=== PATIENT | male | born 1940 | race Caucasian/White ===

== ENCOUNTER 2018-06-28 14:43 | Emergency (ER) | payer OTHER, SELFPAY ==
[2018-06-28 14:44] VITALS: BP 120/81; PULSE 59; PULSE 60; RESP 14; RESP 18; TEMP 36.6; O2SAT 96; O2SAT 97; BMI 25.9
[2018-06-28 14:51] LABS: Bedside Glucose 114 mg/dL (70-110)
--- NOTE | 2018-06-28 15:15 | EKG12_ITS ---
Test Reason : DIZZINESS Blood Pressure : / mmHG Vent. Rate : 057 BPM Atrial Rate : 057 BPM P-R Int : 166 ms QRS Dur : 088 ms QT Int : 442 ms P-R-T Axes : 033 010 041 degrees QTc Int : 430 ms Sinus bradycardia Nonspecific ST abnormality Abnormal ECG Confirmed by TERRENCE BARFIELD, YOVANA ([id number]), material expeditor LILIYA PEDRO ([id number]) on 07/03/2018 9:10:25 AM Referred By: COSME Confirmed By:YOVANA OCAMPO MD
--- NOTE | 2018-06-28 15:22 | ED.DCSUM_ITS ---
History of Present Illness Chief Complaint: Dizziness Detail of Chief Complaint: lightheaded Informant: Patient, [employer] Consultant Onset: Today Context: Gradual Onset Timing: Intermittent - one episode today, Lasts - 20 min or so Quality: lightheadedness Location: head Current Severity: gone Maximum Severity: Moderate Worsened by: standing Relieved by: sitting, and felt better after BM, EMS oral glucose, and drinking water. Associated Symptoms: none except feeling thirsty. no palpitations, cp, sob, n/v, headache. Narrative: Patient states has had this happen multiple times in the past. Has never passed out or lost consciousness. 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 He is on no medication for that yet. He does not recall EMS checking his blood sugar but they gave him oral glucose and after that and having a bowel movement, he felt better and now feels fine. States he was doing a lot of walking around today. No chest discomfort or other thoracic symptoms. Prior similar symptoms: Yes Recent Illness/Hospitalization: No - Past Medical History (1) CAD (coronary artery disease) Status: Chronic (2) HTN (hypertension) Status: Chronic Past Medical History - Allergies and Home Meds Allergies/Adverse Reactions: Allergies No Known Allergies Allergy (Verified 03/02/17 13:34) Primary Care Physician: [place] [Primary Care Provider] - Surgical History: coronary bypass surgery Smoking Status: Current every day smoker Alcohol: None Review of Systems General: Denies: Chills, Fever, Sweats Eyes: Denies: Visual changes - bilaterally, Diplopia ENT: Denies: Bilateral ear pain, Rhinorrhea, Sore throat Cardiovascular: Denies: Chest pain, Palpitations Respiratory: Denies: Dyspnea, Cough, Dyspnea on exertion Gastrointestinal: Denies: Abdominal pain, Nausea, Vomiting, Diarrhea, Melena, Hematochezia Genitourinary: Denies: Dysuria, Hematuria, Frequency Musculoskeletal: Denies: Back pain, Swelling, Extremity Pain Skin: Denies: Rash, Abscess Neurological: Denies: Headache, Weakness, Numbness Endocrine: Denies: Polyuria, Polydipsia Allergy: Denies: Swelling of the mouth, Swelling of the tongue Physical Exam Vital Signs/Narrative: Vital Signs Temp Pulse Resp BP Pulse Ox 06/28/18 14:44 97.8 F 60 14 120/81 H 97 Inital Vital Signs reviewed: Yes General: Well nourished, Well developed, - - well-appearing, nad Head: Normocephalic, Atraumatic Eyes: Perrl, EOMI ENT: Moist mucous membranes, No rhinorrhea Neck: Supple, Nontender. Negative for: No JVD Cardiovascular: Regular rate, Regular rhythm, No murmurs, Normal S1, Normal S2 Respiratory: No distress, CTA bilaterally, Chest nontender Abdomen: Soft, Nontender, Nondistended, Normal bowel sounds Back: Nontender, Normal Inspection. Negative for: CVA tenderness Extremities: Nontender, No edema Skin: Normal color, No rash Neurological: Alert, Oriented x3, Cranial nerves II-XII grossly intact, Normal Strength, Normal Sensation Psychological: Normal affect Diagnostic/Tx/Re-eval Laboratory Results 06/28/18 06/28/18 06/28/18 14:47 14:52 14:52 WBC 8.5 RBC 4.51 L Hgb 13.7 Hct 42.3 MCV 93.8 MCH 30.4 MCHC 32.4 RDW 13.3 RDW Differential 45.3 H Plt Count 225 MPV 12.2 H Immature Gran % (Auto) 0.200 Neut % (Auto) 69.9 Lymph % (Auto) 22.4 Graves % (Auto) 5.2 Eos % (Auto) 2.1 Baso % (Auto) 0.2 Absolute Neuts (auto) 5.9 Absolute Lymphs (auto) 1.90 Total Counted Not Reportable Sodium 139 Potassium 4.2 Chloride 108 H Carbon Dioxide 24.0 Anion Gap 7 BUN 19 H Creatinine 1.35 H Estim Creat Clear Calc 45.82 Est GFR (MDRD) Af Amer 66 Est GFR (MDRD) Non-Af 54 L BUN/Creatinine Ratio 14.1 Glucose 131 H Calcium 9.0 Troponin I 0.022 Urine Color Urine Clarity Urine pH Ur Specific [place] Urine Protein Urine Glucose (UA) Urine Ketones Urine Occult Blood Urine Nitrite Urine Bilirubin Urine Urobilinogen Ur Leukocyte Esterase Urine RBC Urine WBC Ur Squamous Epith Cells Urine Bacteria Hyaline Casts Urine Mucus POC Glucose 114 H 06/28/18 17:01 WBC RBC Hgb Hct MCV MCH MCHC RDW RDW Differential Plt Count MPV Immature Gran % (Auto) Neut % (Auto) Lymph % (Auto) [place] % (Auto) Eos % (Auto) Baso % (Auto) Absolute Neuts (auto) Absolute Lymphs (auto) Total Counted Sodium Potassium Chloride Carbon Dioxide Anion Gap BUN Creatinine Estim Creat Clear Calc Est GFR (MDRD) Af Amer Est GFR (MDRD) Non-Af BUN/Creatinine Ratio Glucose Calcium Troponin I Urine Color Yellow Urine Clarity Clear Urine pH 6.0 Ur Specific [place] 1.015 Urine Protein 15 H Urine Glucose (UA) Normal Urine Ketones 5 H Urine Occult Blood 10 H Urine Nitrite Negative Urine Bilirubin Negative Urine Urobilinogen Normal Ur Leukocyte Esterase 25 H Urine RBC 0 SEEN Urine WBC 0-5 SEEN Ur Squamous Epith Cells 0 SEEN Urine Bacteria 1+ Hyaline Casts 10-25 SEEN Urine Mucus 3+ POC Glucose - Rhythm Strip Rhythm Strip: Sinus Rhythm Rate: 57 Ectopy: None - EKG Initial EKG Interpretation: Sinus Rhythm, No Acute Injury Pattern, Non-Specific ST Changes - diffusely - Medical Decision Making Orthostatics were borderline with regards to his heart rate but not positive. He was given some oral fluids, he was ambulatory throughout the ED without any symptoms or hypoxia. His labs are unremarkable, his EKG is nonspecific and unremarkable, I think he is stable to go home. The EMS glucometer was not working properly, so they gave him glucose and all anyway. He also had a bowel movement shortly thereafter and follow-up better. Differential includes mild dehydration from all the walking he was doing today, as well as vasovagal lightheadedness. Encouraged to follow-up with his doctor. ED Disposition - Plan for ED Patient: Disposition: Home or Assisted Living Chief Complaint: Dizziness Diagnosis: Lightheadedness Instructions: ED Dizziness UKO Referrals: [facility] [Primary Care Provider] - 2 Days
[2018-06-28 15:30] LABS: Absolute Neutrophil Count 5.9 X10^3/uL (2.0-7.7); Basophil# 0.02 X10^3/uL; Basophil% 0.2 % (0-1); Eosinophil# 0.18 X10^3/uL; Eosinophils% 2.1 % (0-5); Hematocrit 42.3 % (40-54); Hemoglobin 13.7 g/dl (13.0-16.5); Lymphocyte % 22.4 % (19-41); Mean Corp Hgb Conc 32.4 g/gl (32-36); Mean Corpuscular Hgb 30.4 pg (27.0-32.0); Mean Corpuscular Volume 93.8 fL (80-94); Mean Platelet Vol. 12.2 fl (6.2-12.0); Monocyte# 0.44 X10^3/uL; Monocyte% 5.2 % (0-10); Neutrophil # 5.91 X10^3/uL (2.7-7.7); Neutrophil % 69.9 % (47-70); Platelet Count 225 K/mm3 (150-450); RBC Distribution Width CV 13.3 % (11.6-14.6); RBC Distribution Width SD 45.3 fl (35.1-43.9); Red Blood Count 4.51 M/mm3 (4.6-6.2); White Blood Count 8.5 K/mm3 (4.4-11.0)
[2018-06-28 15:31] LABS: POSITIVE COUNT NO; POSITIVE DIFFERENTIAL NO; POSITIVE MORPHOLOGY NO
[2018-06-28 15:43] LABS: Anion Gap 7 (5-15); BUN 19 mg/dL (7-18); BUN/Creat Ratio 14.1 RATIO (10-20); Chloride 108 mmol/L (98-107); Creatinine, Serum 1.35 mg/dL (0.70-1.30); EST Glomerular Filtration Rate 54 mL/min (>60); Est Glom Filt Rate - Afr Amer 66 mL/min (>60); Estimated Creatinine Clearance 45.82 ml/min; Glucose 131 mg/dL (74-106); Potassium 4.2 mmol/L (3.5-5.1); Sodium Level 139 mmol/L (136-145)
[2018-06-28 15:55] VITALS: BP 147/109; BP 156/102; BP 158/101; PULSE 66; PULSE 81; PULSE 98
[2018-06-28 16:03] VITALS: BP 158/101; PULSE 83; RESP 21; O2SAT 98
[2018-06-28 17:04] VITALS: BP 146/80; PULSE 66; RESP 16; O2SAT 99
[2018-06-28 17:08] LABS: Red Blood Cells-Urine 0 SEEN /hpf (0-5); Squamous Epithelial Cells - UA 0 SEEN /hpf (0-5)
[2018-06-28 17:18] LABS: Color, Urine Yellow (Yellow); Glucose, Dipstick Normal (Normal); Ketone-Dipstick 5 mg/dl (Negative); Leukocyte Esterase-Dipstick 25 /ul (Negative); Nitrite-Dipstick Negative (Negative); Occult Blood-Urine 10 /ul (Negative); Protein-Dipstick 15 mg/dl (Negative); Specific Gravity, Urine 1.015 (1.002-1.030); Urine Bilirubin Dipstick Negative (Negative); Urine Clarity Clear (Clear); Urine Urobilinogen Normal (Normal)
[2018-06-28 17:45] LABS: Hyaline Cast 10-25 SEEN /lpf (0-5)
[2018-06-28 17:47] LABS: Bacteria 1+ /hpf (None Seen); Mucous, Urine 3+ /hpf (<or=2+); White Blood Cells 0-5 SEEN /hpf (0-5)
[2018-06-28 18:15] VITALS: PULSE 75; RESP 20; O2SAT 98
[2018-06-28 18:57] VITALS: BP 146/80; PULSE 67; RESP 18; O2SAT 99
--- OUTSIDE RECORDS SUMMARY | 2018-09-02 14:47 | XMS RPT_ITS ---
:1940 Author Organization [facility] Care Team Providers Name Role Phone [facility], MD Primary Care Unavailable RANJITH AGUIAR Attending Unavailable PROBLEMS PROBLEMS No Problem Records FoundPROCEDURES PROCEDURES No Procedure Records FoundRESULTS RESULTS 12 LEAD ELECTROCARDIOGRAM Observed: 07/03/2018 Status: F Source: [place] 9:10 AM [facility] REPOSITORY [facility] Cardiovascular Services [address] [place] [address] 12 Lead EKG 06/28/18 1530 MR#: [id number] Acct: [id number] Name: LOIS LIMA Rep #: [id number] : 1940 77 From: Nahid Ocampo MD Attending Dr: Status: DEP ER Ordering Dr: Ranjith Aguiar MD Date: 06/28/18 Location: ED Sex: M C Admitted: Test Reason : DIZZINESS Blood Pressure : / mmHG Vent. Rate : 057 BPM Atrial Rate : 057 BPM P-R Int : 166 ms QRS Dur : 088 ms QT Int : 442 ms P-R-T Axes : 033 010 041 degrees QTc Int : 430 ms Sinus bradycardia Nonspecific ST abnormality Abnormal ECG Confirmed by NAHID OCAMPO MD ([id number]), editor in chief newspaper LILIYA PEDRO ([id number]) on 07/03/2018 9:10:25 AM Referred By: COSME Confirmed By:NAHID OCAMPO MD 07/03/18 0910 Date Nahid Ocampo MD CC: [facility]; RANJITH AGUIAR MD Signed EMERGENCY DEPARTMENT Observed: 06/28/2018 Status: F Source: [place] SUMMARY 6:24 PM [facility] REPOSITORY [facility] Medical Records Department [address] [place] [address] Emergency Department Summary 06/28/18 1516 MR#: [id number] Acct: [id number] Name: LOIS LIMA Rep #: [id number] : 1940 77 From: Ranjith Aguiar MD PCP: [place] Status: REG ER History of Present Illness Chief Complaint: Dizziness Detail of Chief Complaint: lightheaded Informant: Patient, Mechanical Engineering Specialist Onset: Today Context: Gradual Onset Timing: Intermittent - one episode today, Lasts - 20 min or so Quality: lightheadedness Location: head Current Severity: gone Maximum Severity: Moderate Worsened by: standing Relieved by: sitting, and felt better after BM, EMS oral glucose, and drinking water. Associated Symptoms: none except feeling thirsty. no palpitations, cp, sob, n/v, headache. Narrative: Patient states has had this happen multiple times in the past. Has never passed out or lost consciousness. 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 He is on no medication for that yet. He does not recall EMS checking his blood sugar but they gave him oral glucose and after that and having a bowel movement, he felt better and now feels fine. States he was doing a lot of walking around today. No chest discomfort or other thoracic symptoms. Prior similar symptoms: Yes Recent Illness/Hospitalization: No - Past Medical History (1) CAD (coronary artery disease) Status: Chronic (2) HTN (hypertension) Status: Chronic Past Medical History - Allergies and Home Meds Allergies/Adverse Reactions: Allergies No Known Allergies Allergy (Verified 03/02/17 13:34) Primary Care Physician: [place] [Primary Care Provider] - Surgical History: coronary bypass surgery Smoking Status: Current every day smoker Alcohol: None Review of Systems General: Denies: Chills, Fever, Sweats Eyes: Denies: Visual changes - bilaterally, Diplopia ENT: Denies: Bilateral ear pain, Rhinorrhea, Sore throat Cardiovascular: Denies: Chest pain, Palpitations Respiratory: Denies: Dyspnea, Cough, Dyspnea on exertion Gastrointestinal: Denies: Abdominal pain, Nausea, Vomiting, Diarrhea, Melena, Hematochezia Genitourinary: Denies: Dysuria, Hematuria, Frequency Musculoskeletal: Denies: Back pain, Swelling, Extremity Pain Skin: Denies: Rash, Abscess Neurological: Denies: Headache, Weakness, Numbness Endocrine: Denies: Polyuria, Polydipsia Allergy: Denies: Swelling of the mouth, Swelling of the tongue Physical Exam Vital Signs/Narrative: Vital Signs 06/28/18 14:44 97.8 F 60 14 120/81 H 97 Inital Vital Signs reviewed: Yes General: Well nourished, Well developed, - - well-appearing, nad Head: Normocephalic, Atraumatic Eyes: Perrl, EOMI ENT: Moist mucous membranes, No rhinorrhea Neck: Supple, Nontender. Negative for: No JVD Cardiovascular: Regular rate, Regular rhythm, No murmurs, Normal S1, Normal S2 Respiratory: No distress, CTA bilaterally, Chest nontender Abdomen: Soft, Nontender, Nondistended, Normal bowel sounds Back: Nontender, Normal Inspection. Negative for: CVA tenderness Extremities: Nontender, No edema Skin: Normal color, No rash Neurological: Alert, Oriented x3, Cranial nerves II-XII grossly intact, Normal Strength, Normal Sensation Psychological: Normal affect Diagnostic/Tx/Re-eval Laboratory Results WBC 8.5 RBC 4.51 L Hgb 13.7 Hct 42.3 MCV 93.8 MCH 30.4 MCHC 32.4 RDW 13.3 RDW Differential 45.3 H WBC RBC Hgb Hct MCV MCH MCHC RDW RDW Differential Plt Count MPV Immature Gran % (Auto) Neut % (Auto) Lymph % (Auto) [place] % (Auto) - Rhythm Strip Rhythm Strip: Sinus Rhythm Rate: 57 Ectopy: None - EKG Initial EKG Interpretation: Sinus Rhythm, No Acute Injury Pattern, Non- Specific ST Changes - diffusely - Medical Decision Making Orthostatics were borderline with regards to his heart rate but not positive. He was given some oral fluids, he was ambulatory throughout the ED without any symptoms or hypoxia. His labs are unremarkable, his EKG is nonspecific and unremarkable, I think he is stable to go home. The EMS glucometer was not working properly, so they gave him glucose and all anyway. He also had a bowel movement shortly thereafter and follow- up better. Differential includes mild dehydration from all the walking he was doing today, as well as vasovagal lightheadedness. Encouraged to follow-up with his doctor. ED Disposition - Plan for ED Patient: Disposition: Home or Assisted Living Chief Complaint: Dizziness Diagnosis: Lightheadedness Instructions: ED Dizziness UKO Referrals: [facility] [Primary Care Provider] - 2 Days What to do if you have Problems For any increased pain, shortness of breath, bleeding, nausea or vomiting, chest pain, or any unexpected problems, contact your Primary Care Provider. Call [facility] ([phone]) or report to the closest Emergency Room. Call 911 if necessary. 06/28/18 0252 <Electronically signed by Ranjith Aguiar MD> Date Ranjith Aguiar MD Cosigner Signature (If Indicated): Date CC: [facility] URINALYSIS, COMPLETE Collected: 06/28/2018 Status: F Source: [place] 5:01 PM [facility] REPOSITORY Order Comment: Order Date: 06/28/18 Has pt arrived? Y How was Urine Obtained? LAND SURVEY TECHNICIAN TO SPECIFY TYPE CODE TESTS RESULT OUT OF RANGE REFERENCE UNITS LAB L400.3000 Yellow COLOR Normal Yellow LAB L400.3050 Clear Normal CLARITY Clear LAB L400.3200 Normal mg/dl Normal GLUCOSE, UR Normal LAB L400.3300 Negative mg/dL Normal BILIRUBIN URINE Negative LAB L400.3400 Negative mg/dl High 5 KETONE UR LAB L400.3465 1.002-1.030 Normal SP.GR. DIPSTX 1.015 LAB L400.3550 5.0 - 8.0 pH UR Normal 6.0 LAB L400.3600 Negative mg/dl High PROT 15 DIPSTX LAB L400.3700 Normal mg/dl Normal UROBILI Normal LAB L400.3750 Negative Normal NITRITE UR Negative LAB L400.3780 Negative /ul High 10 OCCULT BLOOD-UR LAB L400.3800 Negative /ul High LEUK 25 ESTERASE LAB L400.4050 0-5 /hpf WBC Normal 0-5 SEEN LAB L400.4100 0-5 /hpf 0 Normal RBC-UA SEEN LAB L400.4150 0-5 /hpf SQUAM 0 Normal EPI SEEN LAB L400.4300 None Seen /hpf 1+ Normal BACTERIA LAB L400.4350 <or=2+ /hpf 3+ Normal MUCUS, URINE LAB L400.4400 0-5 /lpf Normal HYALINE CAST 10-25 SEEN Performed By: #### L400.0001 #### [facility] [address] [place], [address] CBC W/DIFF, AUTOMATED Collected: 06/28/2018 Status: F Source: [place] 2:52 PM [facility] REPOSITORY TYPE CODE TESTS RESULT OUT OF RANGE REFERENCE UNITS LAB L100.1000 4.4-11.0 K/mm3 Normal WBC 8.5 LAB L100.1200 4.6-6.2 M/mm3 Low RBC 4.51 LAB L100.1300 13.0-16.5 g/dl Normal HGB 13.7 LAB L100.1400 40-54 % Normal HCT 42.3 LAB L100.1500 80-94 fL Normal MCV 93.8 LAB L100.1600 27.0-32.0 pg Normal MCH 30.4 LAB L100.1700 32-36 g/gl Normal MCHC 32.4 LAB L100.1810 11.6-14.6 % Normal RDW CV 13.3 LAB L100.1820 35.1-43.9 fl High RDW SD 45.3 LAB L100.1900 150-450 K/mm3 Normal PLT 225 LAB L100.2000 6.2-12.0 fl High MPV 12.2 LAB L100.2100 47-70 % Normal NEUT% 69.9 LAB L100.2200 19-41 % Normal LY% 22.4 LAB L100.2300 0-10 % Normal MONO% 5.2 LAB L100.2400 0-5 % Normal EO% 2.1 LAB L100.2500 0-1 % Normal BASO% 0.2 LAB L100.2550 0.0-0.9 % Normal IM GRAN % 0.200 Result Comment: IG% - Immature Granulocytes (promyelocytes, myelocytes and metamyelocytes) > 1% indicates that a LEFT SHIFT is Present. LAB L100.2620 2.0-7.7 X10 3/uL Normal Absolute Neut 5.9 LAB L100.2720 0.83-4.51 X10 3/ul Normal Absolute Lymph 1.90 Performed By: #### L100.0100 #### [facility] [address] [place], [address] BASIC METABOLIC Collected: 06/28/2018 Status: F Source: [place] PROFILE (BMP) 2:52 PM [facility] REPOSITORY TYPE CODE TESTS RESULT OUT OF RANGE REFERENCE UNITS LAB L501.0100 74-106 mg/dL High GLU 131 Result Comment: Fasting Glucose result greater than or equal to 126 mg/dL suggests DIABETES MELLITUS per A.D.A. criteria. Please note revised GLUCOSE reference range effective 2017. LAB L501.1000 7-18 mg/dL High BUN 19 LAB L501.1100 0.70-1.30 mg/dL High CREAT,SERUM 1.35 Result Comment: The validity of the calculated GFR AND GFRAA in patients over 70 years has not been determined. Clinical correlation is essential. LAB L501.1110 >60 mL/min Low EST GFR 54 Result Comment: Non- GFR Calc LAB L501.1115 >60 mL/min Normal EST GFR - AA 66 Result Comment: GFR Calc LAB L501.1255 ml/min Normal Estimated CRCL 45.82 LAB L501.1300 10-20 RATIO Normal BUN/CRE 14.1 LAB L501.2200 8.5-10 mg/dL Normal .1 CA 9.0 LAB L501.5300 136-14 mmol/L Normal 5 NA 139 LAB L501.5600 3.5-5. mmol/L Normal 1 K 4.2 LAB L501.5900 98-107 mmol/L High CL 108 LAB L501.6100 21.0-3 mmol/L Normal 2.0 CO2 24.0 LAB L501.6200 5-15 Normal GAP 7 Performed By: #### L500.2500, L501.4010 #### [facility] [address] [place], [address] TROPONIN-I Collected: 06/28/2018 Status: F Source: [place] 2:52 PM [facility] REPOSITORY TYPE CODE TESTS RESULT OUT OF RANGE REFERENCE UNITS LAB L501.4010 <0.045 ng/mL Normal 0.022 TROPONIN-I Result Comment: TROPONIN-I EXPECTED VALUES <0.045 Negative 0.045 - 0.590 Consistent with Cardiac Damage > OR = 0.600 Critical Value Not every elevated troponin is indicative of [place]. These values should be used with clinical judgement in examining the patient's clinical picture for diagnosis. To establish a diagnosis of [place] versus myocardial injury, there must be a demonstrated rise and/or fall in the troponin values, in addition to ischemic symptoms, EKG changes, new regional wall motion abnormality, and/or angiographical evidence. PLEASE NOTE: REFERENCE RANGES EDITED 17 Performed By: #### L500.2500, L501.4010 #### [facility] [address] [place], [place], [address] BEDSIDE GLUCOSE Collected: 06/28/2018 Status: F Source: [place] 2:47 PM [facility] REPOSITORY TYPE CODE TESTS RESULT OUT OF REFERENCE UNITS RANGE LAB L501.080 70-110 mg/dL High BEDSIDE GLU 114 Result Comment: MANAGEMENT OF PATIENT CARE PER NURSING PROTOCOL Performed By: #### L501.080 #### [facility] Point of Care [address] [place], [place] [address] ALLERGIES ALLERGIES DATE TYPE / CODE NAME / CODE REACTION SEVERITY SOURCE 03/02/2017 Drug No Known Unknown [facility] Allergy/4160 Allergies/F00 Hospital 76198(SNOMED [id number](RXNOR Repository CT) M) ENCOUNTERS ENCOUNTERS ADMIT/DISCHARGE ACCOUNT ADMITTING ENCOUNTER LOCATION SOURCE NUMBER CLASS 06/28/2018/ [id number] Emergency [facility] ing:ED Repository PAYERS PAYERS ENCOUNTER GUARANTOR PAYER SUBSCRIBER SOURCE 06/28/2018 LOIS Cavanaugh Primary Insurance:AYAAN Grullno [id number] [facility] OROSZD[facility], Number: [id number] [place] [address]Lkw: [id number] Repository Date:[id number] () SERVICE [id number] [place], [place] [address]JO: [phone] 06/28/2018 Secondary NOT GIVENUNK [place] Insurance:SELF PAY [facility] Number: Effective Repository Date:2018-06-28
== END 2018-06-28 19:34 | disposition home or self-care (01) ==
PROVIDERS: Emergency Provider Emergency Medicine
DX: R42 Dizziness and giddiness (principal); I25.10 Atherosclerotic heart disease of native coronary artery without angina pectoris; I10 Essential (primary) hypertension; R73.09 Other abnormal glucose; F17.201 Nicotine dependence, unspecified, in remission
CPT/HCPCS: 80048; 81001; 82962; 84484; 85025; 93005; 99284; J7030; A4216

== ENCOUNTER 2019-03-06 12:34 | Emergency (ER) | payer OTHER, SELFPAY ==
[2019-03-06 12:36] VITALS: BP 125/78; PULSE 64; RESP 16; TEMP 35.6; O2SAT 97; BMI 26.2
--- NOTE | 2019-03-06 13:02 | RAD_ITS ---
STUDY: X-RAY CHEST REASON FOR EXAM: Male, 78 years old. Cough. Dizziness. TECHNIQUE: Single AP portable view of the chest. COMPARISON: Comparison is made with prior study dated March 02, 2017. FINDINGS: EKG electrodes are seen. Hyperinflation. The lungs are clear. There is no demonstrated pleural abnormality. Sternal cerclage wires and vascular clips are present from a prior sternotomy and coronary artery bypass graft procedure (CABG). Normal mediastinum and derek. Normal visualized pulmonary arteries. There is atherosclerotic tortuosity of the aortic arch and descending thoracic aorta. Normal visualized thoracic spine. Normal visualized ribs, clavicles, and shoulders. There is no demonstrated abnormality of the visualized soft tissue structures of the upper abdomen. RAD/Chest 1 View (Portable) IMPRESSION: Hyperinflation. The lungs are clear. Electronically Signed: Beau Park, at 13:48 EDT , Service support ,
--- NOTE | 2019-03-06 13:03 | CT_ITS ---
STUDY: CT ABDOMEN AND PELVIS WITH CONTRAST REASON FOR EXAM: Male, 78 years old. Abdominal pain. Dizziness following a bowel movement. RADIATION DOSAGE (If Supplied By Facility): CTDIvol = ( 16.23 ) mGy, DLP = ( 655.48 ) mGycm TECHNIQUE: Transaxial images were obtained from the dome of the diaphragm to the symphysis pubis without oral contrast. IV 100mL Isovue-300 100 was administered. Sagittal and coronal images were reconstructed. Individualized dose optimization techniques were used for this CT. COMPARISON: None. FINDINGS: Increased interstitial markings at the lung bases worse on the left side suggestive of interstitial scarring. Coronary artery calcification. Normal liver. Normal gallbladder and extrahepatic biliary system. Normal spleen. Normal pancreas. Normal bilateral adrenal glands. Normal right kidney. Normal left kidney. Gaseous and fluid distention of the stomach and proximal duodenum. Normal small intestine. There are multiple colonic diverticula consistent with diverticulosis. The appendix is visualized and appears normal. There is diffuse atherosclerotic calcification of the abdominal aorta, without a demonstrated aneurysm. Normal inferior vena cava. Normal retroperitoneum. Normal urinary bladder. There are prostatic calcifications. Small benign-appearing bilateral inguinal lymph nodes. Normal abdominal wall. There are degenerative changes of the visualized lumbar spine. CT/Abdomen/Pelvis W IV Cont ONLY IMPRESSION: Gaseous and fluid distention of the stomach and second portion of the duodenum. Sigmoid diverticulosis. Findings suggestive of bibasilar scarring. Electronically Signed: Beau Park, at 14:12 EDT , Service support ,
[2019-03-06 13:22] LABS: Absolute Lymphocyte Count 1.49 X10^3/uL (0.83-4.51); Absolute Neutrophil Count 5.7 X10^3/uL (2.0-7.7); Basophil# 0.03 X10^3/uL; Basophil% 0.4 % (0-1); Eosinophil# 0.36 X10^3/uL; Eosinophils% 4.3 % (0-5); Hematocrit 42.1 % (40-54); Hemoglobin 14.4 g/dL (13.0-16.5); Lymphocyte # 1.49 X10^3/ul (4.0); Lymphocyte % 17.8 % (19-41); Mean Corp Hgb Conc 34.2 g/dL (32-36); Mean Corpuscular Hgb 31.3 pg (27.0-32.0); Mean Corpuscular Volume 91.5 fL (80-94); Mean Platelet Vol. 11.9 fl (6.2-12.0); Monocyte# 0.74 X10^3/uL; Monocyte% 8.8 % (0-10); NRBC Flagged by Analyzer 0 % (0-5); Neutrophil # 5.72 X10^3/uL (2.7-7.7); Neutrophil % 68.1 % (47-70); Platelet Count 208 K/mm3 (150-450); RBC Distribution Width SD 43.5 fl (35.1-43.9); White Blood Count 8.4 K/mm3 (4.4-11.0)
--- NOTE | 2019-03-06 13:28 | ED.DCSUM_ITS ---
History of Present Illness Chief Complaint: Abd Pain Informant: Patient Onset: Today Context: Gradual Onset Timing: Intermittent Current Severity: Moderate Maximum Severity: Moderate Narrative: The patient is a 78-year-old male with history of coronary vascular disease status post CABG. He does get all of his care through the [place]. He states that today, he was doing his shopping for groceries. He states he felt the urge like he had to move his bowels. After he finished, he states he was feeling lightheaded and diaphoretic. He also felt mildly nauseated. He did not have chest pain but follows if he was going to pass out. He states it would come and go. He states that he feels a little improved, but is still having symptoms. He denies any fevers or chills. He is otherwise been in his normal state of health. Prior similar symptoms: No Recent Illness/Hospitalization: No Past Medical History - Allergies and Home Meds Allergies/Adverse Reactions: Allergies No Known Allergies Allergy (Verified 03/02/17 13:34) Primary Care Physician: [facility] [Primary Care Provider] - Past Medical History: - Surgical History: coronary bypass surgery Smoking Status: Current every day smoker Review of Systems General: Denies: Chills, Fever, Sweats Eyes: Denies: Visual changes - bilaterally, Diplopia ENT: Denies: Rhinorrhea, Sore throat Cardiovascular: Denies: Chest pain, Palpitations Respiratory: Denies: Dyspnea, Cough, Dyspnea on exertion Gastrointestinal: Reports: Abdominal pain, Nausea. Denies: Vomiting, Diarrhea, Melena, Hematochezia Genitourinary: Denies: Dysuria, Hematuria, Frequency Musculoskeletal: Denies: Back pain, Extremity Pain Skin: Denies: Rash, Wounds Neurological: Denies: Headache, Weakness, Numbness Psych: Denies: Depression Endocrine: Denies: Polyuria Physical Exam Vital Signs/Narrative: Vital Signs Temp Pulse Resp BP Pulse Ox 03/06/19 12:36 96.1 F L 64 16 125/78 H 97 Inital Vital Signs reviewed: Yes General: Well nourished, Well developed, No Acute Distress Head: Normocephalic, Atraumatic Eyes: Perrl, EOMI ENT: Moist mucous membranes, No rhinorrhea Neck: Supple, Nontender Cardiovascular: Regular rate, Regular rhythm, No murmurs Respiratory: No distress, CTA bilaterally, Chest nontender Abdomen: Soft, Nontender, Nondistended, Normal bowel sounds Back: Nontender, Normal Inspection Extremities: Nontender, No edema Skin: Normal color, No rash Neurological: Alert, Oriented x3, Cranial nerves II-XII grossly intact, Normal Strength, Normal Sensation Psychological: Normal affect, Normal Mood Diagnostic/Tx/Re-eval Chest X-Ray - ED: 1 View, Chronic Changes Clinical Impression(s) from Imaging Studies Chest X-Ray 03/06/19 13:02 IMPRESSION: Hyperinflation. The lungs are clear. Electronically Signed: Beau Vivian, at 13:48 EDT , Service support , Abdomen/Pelvis CT 03/06/19 13:03 IMPRESSION: Gaseous and fluid distention of the stomach and second portion of the duodenum. Sigmoid diverticulosis. Findings suggestive of bibasilar scarring. Electronically Signed: Beau Vivian, at 14:12 EDT , Service support , Abnormal Lab Results 03/06/19 03/06/19 12:40 12:40 WBC 8.4 RBC 4.60 Hgb 14.4 Hct 42.1 MCV 91.5 MCH 31.3 MCHC 34.2 RDW Std Deviation 43.5 RDW Coeff of Ly 13.0 Plt Count 208 MPV 11.9 Immature Gran % (Auto) 0.600 Neut % (Auto) 68.1 Lymph % (Auto) 17.8 L [place] % (Auto) 8.8 Eos % (Auto) 4.3 Baso % (Auto) 0.4 Absolute Neuts (auto) 5.7 Absolute Lymphs (auto) 1.49 Nucleated RBC % 0 Sodium 139 Potassium 3.8 Chloride 108 H Carbon Dioxide 22.0 Anion Gap 9 BUN 13 Creatinine 1.26 Estim Creat Clear Calc 45.17 Est GFR (MDRD) Af Amer 71 Est GFR (MDRD) Non-Af 59 L BUN/Creatinine Ratio 10.3 Glucose 129 H Calcium 9.2 Total Bilirubin 0.80 AST 19 ALT 15 L Alkaline Phosphatase 93 Troponin I < 0.015 Total Protein 7.5 Albumin 3.5 Globulin 4.0 Albumin/Globulin Ratio 0.9 Lipase 117 - Rhythm Strip Rhythm Strip: Sinus Rhythm Rate: 70 Ectopy: None - EKG Initial EKG Interpretation: Sinus Rhythm, No Acute Injury Pattern Prior: Unchanged - Medical Decision Making The patient presents with nausea and a near syncopal episode. He has mild pain in his left lower quadrant. EKG was obtained which showed sinus rhythm without acute ischemia. Screening labs are unremarkable. The patient did have mild decrease in his orthostatics. He was given fluids. CT of abdomen pelvis was ordered which showed some gaseous distention of the stomach, but no other acute process. On reevaluation, the patient is feeling improved. Is tolerating fluids. He had no further nausea or diaphoresis. My suspicion is that this is likely a vasovagal mediated episode. Patient does not want to stay in the hospital and I feel this is reasonable. He will be discharged home. Impression 1. Vasovagal near syncope ED Disposition - Plan for ED Patient: Instructions: NEAR SYNCOPE, Vasovagal, ABDOMINAL PAIN, Unkown Cause, (Male) Referrals: [facility] [Primary Care Provider] -
[2019-03-06 13:29] VITALS: BP 114/73; BP 125/78; BP 97/62; PULSE 56; PULSE 67; PULSE 80
[2019-03-06 13:39] LABS: ALB/GLOB Ratio 0.9 RATIO (0.9-2.4); AST(SGOT) 19 U/L (15-37); Alanine Aminotransfer ALT/SGPT 15 U/L (16-61); Albumin, Serum 3.5 g/dL (3.2-5.0); Alkaline Phosphatase 93 U/L (45-117); Anion Gap 9 (5-15); BUN 13 mg/dL (7-18); BUN/Creat Ratio 10.3 RATIO (10-20); Calcium,Total 9.2 mg/dL (8.5-10.1); Chloride 108 mmol/L (98-107); Creatinine, Serum 1.26 mg/dL (0.70-1.30); EST Glomerular Filtration Rate 59 mL/min (>60); Est Glom Filt Rate - Afr Amer 71 mL/min (>60); Estimated Creatinine Clearance 45.17 ml/min; Glucose 129 mg/dL (74-106); Lipase 117 U/L (73-393); Potassium 3.8 mmol/L (3.5-5.1); Protein, Total 7.5 g/dL (6.4-8.2); Sodium Level 139 mmol/L (136-145)
[2019-03-06] MEDS: 0.9% Normal Saline 1,000 ML 999 ML IV (14:17)
[2019-03-06 14:42] VITALS: BP 97/62; PULSE 68; RESP 18; O2SAT 99
[2019-03-06] MEDS: Ondansetron 4 MG/2 ML Vial IV (14:42)
[2019-03-06 15:17] VITALS: BP 100/64; PULSE 73; RESP 18; O2SAT 99
== END 2019-03-06 15:27 | disposition home or self-care (01) ==
LOC: ED 13:11
PROVIDERS: Emergency Provider Emergency Medicine
DX: R55 Syncope and collapse (principal); K57.30 Diverticulosis of large intestine without perforation or abscess without bleeding; F17.200 Nicotine dependence, unspecified, uncomplicated; Z95.1 Presence of aortocoronary bypass graft; Z79.82 Long term (current) use of aspirin; Z79.899 Other long term (current) drug therapy
CPT/HCPCS: 71045; 74177; 80053; 83690; 84484; 85025; 93005; 96361; 96374; 99285; J7030; J7040; Q9967; A4216; J2405